=== PATIENT | female | born 1995 | race Caucasian/White ===

== ENCOUNTER 2025-03-30 10:10 | Outpatient (AMB) | payer SELFPAY ==
[2025-03-30 10:22] VITALS: BP 107/61; PULSE 105; RESP 20; TEMP 36.8; O2SAT 96; BMI 28.8
--- NOTE | 2025-03-30 10:22 | OBCLNT_ITS ---
Vital Signs 03/30/25 10:22 Height 1.45 m Height Method Stated Weight 60.555 kg Weight Measurement Method Standing Scale BMI 28.8 BP 107/61 Blood Pressure Source Automatic Cuff Blood Pressure Location Left Upper Arm Position Sitting Respiration 20 Pulse 105 H Pulse Source Monitor Temp 98.2 F Temp Source Oral Pulse Oximetry (%) 96 Oxygen Delivery Method Room Air Allergies/Home Meds Allergies & Medications Allergies No Known Allergies Allergy (Verified 03/30/25 10:23) Medication Reconciliation No Known Home Medications 03/16/25 [History Confirmed 03/30/25] Immunizations Immunizations Flu Vaccine in the Last 12 Months: No Flu Vaccine Exclusion Criteria: Refused by Patient Care OB Visit Log OB Flowsheet Initial Weight: Not Recorded Date -?-?-?-?-?-?-?-?-?-?-?-?- EGA Weight BP Alb Glu CTX Pres Fundal ht FHR Mov Dilation Station Effacement Hx Notes Visit Note 03/16/25 -?-?-?-?-?-?-?-?-?-?-?-?- 31w 5d 59.477 kg 105/68 absent unknown 30 135 active 29-year-old 3 para 2 for OB transfer. Records are in the chart. Her last. Was August 06, 2024. And this gave a due date May 13, 2025. Patient had her first ultrasound at 16 weeks December 07, 2024 and this changed to due date to May 22, 2025. Reports movement. Denies contractions, leaking, bleeding Scheduled growth scan at [facility]. Discussed labor precautions. Reviewed labs and dates with patient. And I scheduled her with OB for repeat C- section. Return in 2 weeks OB check 03/30/25 -?-?-?-?-?-?-?-?-?-?-?-?- 33w 5d 60.555 kg 107/61 ALON Calculator Estimated Delivery Date Method Current WG Current Estimate 05/13/25 LMP (Certain) 33w 5d Other Estimates 05/22/25 Ultrasound #1 32w 3d 05/22/25 Ultrasound #2 32w 3d 05/13/25 Manual 33w 5d final alon: Notes Visit Date: 03/16/25 Last Updated by: Carmella Juan Yahaira, CNM 29 yo IUP 30w2. prev c/s x1/VBACx1. OB PANEL: NIPT/carrier screen-, O-,abs-, RPR::NR, rub Imm, HBSAG-HIV-,HC-, GC/CT-, UT-/UA-, 1 hr gtt and 3rd tri labs - Office Procedures OBC Clinic LOC & Office Proc's Nursing/Assessment Patient Status: Established Patient OB Clinic Nursing Assessment: Medication Reconciliation, Update PMH in EMR and Vital Signs OB Clinic Coordination of Care: Complex Care and Chronic Disease 1-5, Consent,records obtained, informed consent, Education Simp Pt/Fam, 1 Ins Authorization, Lab and Imaging orders, Results/Orders obtained and Staff clarify orders Special Needs: Heart tones Established Patient Charge Established Patient Point Assignment: 150 Established Patient Point Charge: EP Level 4 (120-155)
--- NOTE | 2025-03-30 11:01 | OBCLNT_ITS ---
Vital Signs 03/30/25 10:22 03/30/25 11:02 Height 1.45 m Height Method Stated Weight 60.555 kg Weight Measurement Method Standing Scale BMI 28.8 BP 107/61 107/61 Blood Pressure Source Automatic Cuff Blood Pressure Location Left Upper Arm Position Sitting Respiration 20 20 Pulse 105 H 105 H Pulse Source Monitor Temp 98.2 F 98.2 F Temp Source Oral Pulse Oximetry (%) 96 96 Oxygen Delivery Method Room Air Allergies/Home Meds Allergies & Medications Allergies No Known Allergies Allergy (Verified 03/30/25 10:23) Medication Reconciliation No Known Home Medications 03/16/25 [History Confirmed 03/30/25] Immunizations Immunizations Flu Vaccine in the Last 12 Months: No Flu Vaccine Exclusion Criteria: No Exclusion Criteria Care OB Visit Log OB Flowsheet Initial Weight: Not Recorded Date -?-?-?-?-?-?-?-?-?-?-?-?- EGA Weight BP Alb Glu CTX Pres Fundal ht FHR Mov Dilation Station Effacement Hx Notes Visit Note 03/16/25 -?-?-?-?-?-?-?-?-?-?-?-?- 30w 3d 59.477 kg 105/68 absent unknown 30 135 active 29-year-old 3 para 2 for OB transfer. Records are in the chart. Her last. Was August 06, 2024. And this gave a due date May 13, 2025. Patient had her first ultrasound at 16 weeks December 07, 2024 and this changed to due date to May 22, 2025. Reports movement. Denies contractions, leaking, bleeding Scheduled growth scan at [facility]. Discussed labor precautions. Reviewed labs and dates with patient. And I scheduled her with OB for repeat C- section. Return in 2 weeks OB check 03/30/25 -?-?-?-?-?-?-?-?-?-?-?-?- 32w 3d 60.555 kg 107/61 107/61 absent cephalic 32 144 active ALON Calculator Estimated Delivery Date Method Current WG Current Estimate 05/22/25 Ultrasound #1 34w 0d Other Estimates 05/13/25 LMP (Certain) 35w 2d 05/22/25 Ultrasound #2 34w 0d 05/13/25 Manual 35w 2d final alon:05/22 Notes Visit Date: 03/30/25 Last Updated by: Miroslava Aldana MD / first c section and second is and she wants a this time also Since [facility] does not provide TOLAC services will refer to Aurelia/ Gaudencio for Visit Date: 03/16/25 Last Updated by: Carmella Syed, CNM 29 yo IUP 30w2. prev c/s x1/VBACx1. OB PANEL: NIPT/carrier screen-, O-,abs-, RPR::NR, rub Imm, HBSAG-HIV-,HC-, GC/CT-, UT-/UA-, 1 hr gtt and 3rd tri labs - Office Procedures OBC Clinic LOC & Office Proc's Nursing/Assessment Patient Status: Established Patient OB Clinic Nursing Assessment: Medication Reconciliation, Update PMH in EMR and Vital Signs OB Clinic Coordination of Care: Complex Care and Chronic Disease 1-5, Consent,r ecords obtained, informed consent, Education Simp Pt/Fam, 1 Ins Authorization, Lab and Imaging orders, Results/Orders obtained and Staff clarify orders Special Needs: Heart tones Established Patient Charge Established Patient Point Assignment: 150 Established Patient Point Charge: EP Level 4 (120-155) Assessment & Plan Diagnosis / Problem List (1) Encounter for supervision of high risk in third trimester, antepartum: Status: Acute (2) Previous delivery affecting , antepartum: Status: Acute Additional Plan Patient desires to be referred for /TOLAC /referral made / third trimester labs are pending Follow Up: 2
[2025-03-30 11:02] VITALS: BP 107/61; PULSE 105; RESP 20; TEMP 36.8; O2SAT 96
== END 2025-03-30 10:55 | disposition home or self-care (01) ==
LOC: HODSOBC 10:10
PROVIDERS: PCP Obstetrics & Gynecology; Referring Provider Obstetrics & Gynecology; Supervising Provider Obstetrics & Gynecology; Visit Provider Obstetrics & Gynecology
DX: O09.293 Supervision of pregnancy with other poor reproductive or obstetric history, third trimester (principal); O34.219 Maternal care for unspecified type scar from previous cesarean delivery; Z3A.33 33 weeks gestation of pregnancy; Z28.21 Immunization not carried out because of patient refusal
CPT/HCPCS: 99214; G0463

== ENCOUNTER 2025-04-17 09:37 | Outpatient (AMB) | payer SELFPAY ==
[2025-04-17 09:46] VITALS: BP 108/71; PULSE 81; RESP 18; TEMP 36.5; O2SAT 98; BMI 28.8
--- NOTE | 2025-04-17 09:46 | OBCLNT_ITS ---
Vital Signs 04/17/25 09:46 Height 1.45 m Height Method Stated Weight 60.555 kg Weight Measurement Method Standing Scale BMI 28.8 BP 108/71 Blood Pressure Source Automatic Cuff Blood Pressure Location Right Upper Arm Position Sitting Respiration 18 Pulse 81 Pulse Source Monitor Temp 97.7 F Temp Source Temporal Artery Scan Pulse Oximetry (%) 98 Oxygen Delivery Method Room Air Allergies/Home Meds Allergies & Medications Allergies No Known Allergies Allergy (Verified 04/17/25 09:47) Medication Reconciliation No Known Home Medications 03/16/25 [History Confirmed 04/17/25] Immunizations Immunizations Flu Vaccine in the Last 12 Months: No Flu Vaccine Exclusion Criteria: No Exclusion Criteria Care OB Visit Log OB Flowsheet Initial Weight: Not Recorded Date -?-?-?-?-?-?-?-?-?-?-?-?- EGA Weight BP Alb Glu CTX Pres Fundal ht FHR Mov Dilation Station Effacement Hx Notes Visit Note 03/16/25 -?-?-?-?-?-?-?-?-?-?-?-?- 30w 3d 59.477 kg 105/68 absent unknown 30 135 active 29-year-old 3 para 2 for OB transfer. Records are in the chart. Her last. Was August 06. And this gave a due date May 13, 2025. Patient had her first ultrasound at 16 weeks December 07, 2024 and this changed to due date to May 22, 2025. Reports movement. Denies contractions, leaking, bleeding Scheduled growth scan at [facility]. Discussed labor precautions. Reviewed labs and dates with patient. And I scheduled her with OB for repeat . R mayurn in 2 weeks OB check 03/30/25 -?-?-?-?-?-?-?-?-?-?-?-?- 32w 3d 60.555 kg 107/61 107/61 absent cephalic 32 144 active 04/17/25 -?-?-?-?-?-?-?-?-?-?-?-?- 35w 0d 60.555 kg 108/71 absent 35 138 ac tive ALON Calculator Estimated Delivery Date Method Current WG Current Estimate 05/22/25 Ultrasound #1 36w 2d Other Estimates 05/13/25 LMP (Certain) 37w 4d 05/22/25 Ultrasound #2 36w 2d 05/13/25 Manual 37w 4d final alon:05/22 Notes Visit Date: 04/17/25 Last Updated by: Miroslava Aldana MD and wants again and has been referred for TOLAC but not accepted yet / US on 04/03/2025 at [facility] BPP is 10/10 Breech /GA by US was 33.4 weeks and growth at 34.1 percentile, EFW is 2284 grams / GBS done today / labor precautions and follow up in 1 week Visit Date: 03/30/25 Last Updated by: Miroslava Aldana MD / first c section and second is and she wants a this time also Since [facility] does not provide TOLAC services will refer to A[facility]/ Gaudencio for Visit Date: 03/16/25 Last Updated by: Carmella Syed, CNM 29 yo IUP 30w2. prev c/s x1/VBACx1. OB PANEL: NIPT/carrier screen-, O-,abs-, RPR::NR, rub Imm, HBSAG-HIV-,HC-, GC/CT-, UT-/UA-, 1 hr gtt and 3rd tri labs - Office Procedures OBC Clinic LOC & Office Proc's Nursing/Assessment Patient Status: Established Patient OB Clinic Nursing Assessment: Medication Reconciliation, Update PMH in EMR and Vital Signs OB Clinic Coordination of Care: Complex Care and Chronic Disease 1-5, Education Complex Pt/Fam, Consent,records obtained, informed consent, Lab and Imaging orders, Results/Orders obtained and Staff clarify orders Special Needs: Heart tones Miscellaneous Interventions: Culture Specimen Collection Established Patient Charge Established Patient Point Assignment: 155 Established Patient Point Charge: EP Level 4 (120-155) Assessment & Plan Diagnosis / Problem List (1) Previous delivery affecting , antepartum: Status: Acute (2) Encounter for supervision of high risk in third trimester, antepartum: Status: Acute Additional Assessment and wants again and has been referred for TOLAC but not accepted yet / US on 04/03/2025 at [facility] is 10/10 Breech /GA by US was 33.4 weeks and growth at 34.1 percentile, EFW is 2284 grams / GBS done today / labor pre cautions and follow up in 1 week
== END 2025-04-17 10:53 | disposition home or self-care (01) ==
PROVIDERS: Supervising Provider Obstetrics & Gynecology; Visit Provider Obstetrics & Gynecology
DX: O09.293 Supervision of pregnancy with other poor reproductive or obstetric history, third trimester (principal); O34.219 Maternal care for unspecified type scar from previous cesarean delivery; Z3A.35 35 weeks gestation of pregnancy
CPT/HCPCS: 99214; G0463

== ENCOUNTER 2025-05-08 09:06 | Outpatient (AMB) | payer SELFPAY ==
[2025-05-08 09:11] VITALS: BP 112/73; PULSE 89; RESP 16; TEMP 36.6; O2SAT 99; BMI 29.3
--- NOTE | 2025-05-08 09:11 | OBCLNT_ITS ---
Vital Signs 05/08/25 09:11 Height 1.45 m Height Method Stated Weight 61.689 kg Weight Measurement Method Standing Scale BMI 29.3 BP 112/73 Blood Pressure Source Automatic Cuff Blood Pressure Location Left Upper Arm Position Sitting Respiration 16 Pulse 89 Pulse Source Monitor Temp 98 F Temp Source Oral Pulse Oximetry (%) 99 Oxygen Delivery Method Room Air Allergies/Home Meds Allergies & Medications Allergies No Known Allergies Allergy (Verified 05/08/25 09:13) Medication Reconciliation vitamins-iron fumarate 66 mg iron-folic acid 1 mg tablet tab PO 05/08/25 [History Confirmed 05/08/25] Immunizations Immunizations Flu Vaccine in the Last 12 Months: No Flu Vaccine Exclusion Criteria: Refused by Patient Care OB Visit Log OB Flowsheet Initial Weight: Not Recorded Date -?-?-?-?-?-?-?-?-?-?-?-?- EGA Weight BP Alb Glu CTX Pres Fundal ht FHR Mov Dilation Station Effacement Hx Notes Visit Note 03/16/25 -?-?-?-?-?-?-?-?-?-?-?-?- 30w 3d 59.477 kg 105/68 absent unknown 30 135 active 29-year-old 3 para 2 for OB transfer. Records are in the chart. Her last. Was August 06, 2024. And this gave a due date May 13, 2025. Patient had her first ultrasound at 16 weeks December 07, 2024 and this changed to due date to May 22, 2025. Reports movement. Denies contractions, leaking, bleeding Scheduled growth scan at [facility]. Discussed labor precautions. Reviewed labs and dates with patient. And I scheduled her with OB for repeat C- section. Return in 2 weeks OB check 03/30/25 -?-?-?-?-?-?-?-?-?-?-?-?- 32w 3d 60.555 kg 107/61 107/61 absent cephalic 32 144 active 04/17/25 -?-?-?-?-?-?-?-?-?-?-?-?- 35w 0d 60.555 kg 108/71 absent 35 138 ac tive 05/08/25 -?-?-?-?-?-?-?-?-?-?-?-?- 38w 0d 61.689 kg 112/73 absent breech 38 130 active ALON Calculator Estimated Delivery Date Method Current WG Current Estimate 05/22/25 Ultrasound #1 38w 0d Other Estimates 05/13/25 LMP (Certain) 39w 2d 05/22/25 Ultrasound #2 38w 0d 05/13/25 Manual 39w 2d final alon:05/22 Notes Visit Date: 05/08/25 Last Updated by: Miroslava Aldana MD and wants again and has been referred for TOLAC/ however bedside US shows breech and so TOLAC not possible / Plan follow up on 05/14/2025 and repeat US for presentation and schedule repeat LTCS at 39 weeks or more if persistent breech Visit Date: 04/17/25 Last Updated by: Miroslava Aldana MD and wants again and has been referred for TOLAC but not accepted yet / US on 04/03/2025 at [facility] BPP is 10/10 Breech /GA by US was 33.4 weeks and growth at 34.1 percentile, EFW is 2284 grams / GBS done today / labor precautions and follow up in 1 week Visit Date: 03/30/25 Last Updated by: Miroslava Aldana MD / first c section and second is and she wants a this time also Since [facility] does not provide TOLAC services will refer to [facility]/ Gaudencio for Visit Date: 03/16/25 Last Updated by: Carmella Syed, CN 29 yo IUP 30w2. prev c/s x1/VBACx1. OB PANEL: NIPT/carrier screen-, O-,abs-, RPR::NR, rub Imm, HBSAG-HIV-,HC-, GC/CT-, UT-/UA-, 1 hr gtt and 3rd tri labs - Office Procedures OBC Clinic LOC & Office Proc's Nursing/Assessment Patient Status: Established Patient OB Clinic Nursing Assessment: Medication Reconciliation, Update PMH in EMR and Vital Signs OB Clinic Coordination of Care: Complex Care and Chronic Disease 1-5, Consent,records obtained, informed consent, Education Simp Pt/Fam, 1 Ins Authorization, Lab and Imaging orders, Results/Orders obtained and Staff clarify orders Special Needs: Heart tones Established Patient Charge Established Patient Point Assignment: 150 Established Patient Point Charge: EP Level 4 (120-155) Assessment & Plan Diagnosis / Problem List (1) Previous delivery affecting , antepartum: Status: Acute (2) Encounter for supervision of high risk in third trimester, antepartum: Status: Acute (3) Breech presentation: Status: Acute Qualifiers: Fetus number: single or unspecified fetus Qualified Code(s): O32.1XX0 - Maternal care for breech presentation, not applicable or unspecified Assessment and Plan: Plan check for presentation on Wednesday05/14/2025 and if persistent breech then plan repeat LTCS on 05/16/2025 Additional Plan and wants again and has been referred for TOLAC/ however bedside US shows breech and so TOLAC not possible / Plan follow up on 05/14/2025 and repeat US for presentation and schedule repeat LTCS at 39 weeks or more if persistent breech Follow Up: 1 Week
== END 2025-05-08 09:40 | disposition home or self-care (01) ==
LOC: HODSOBC 09:06
PROVIDERS: Supervising Provider Obstetrics & Gynecology; Visit Provider Obstetrics & Gynecology
DX: O09.293 Supervision of pregnancy with other poor reproductive or obstetric history, third trimester (principal); O34.211 Maternal care for low transverse scar from previous cesarean delivery; O09.893 Supervision of other high risk pregnancies, third trimester; O32.1XX0 Maternal care for breech presentation, not applicable or unspecified; Z3A.38 38 weeks gestation of pregnancy; Z28.21 Immunization not carried out because of patient refusal
CPT/HCPCS: 99214; G0463